=== PATIENT | female | born 1975 | race Caucasian/White ===

== ENCOUNTER 2019-04-23 | Day surgery (SDC) | payer OTHER ==
[~2019-04-23] MED LIST: ACIDOPHILU4 OR; AUGMENTIN500 MG OR; BACLOFEN10 MG PO; BASAGLAR K100 UNIT/M SC; CIPRO500 MG OR; DOXEPIN HCL10 MG PO; ERRIN PO; FLONASE0.05 %; GABAPENTIN100 MG PO; HUMALOG100 UNIT/M SC; LISINOPRIL10 MG PO; MONTELUKAST SOD10 MG PO; PREDNISONE1 MG PO; TRAZODONE100 MG PO
== END 2019-04-23 13:25 | disposition home or self-care (01) | DRG 607 ==
PROC: 0HB8XZZ Excision of Buttock Skin, External Approach (ICD-10-PCS; principal; 2019-04-23)
PROC: 0DJD8ZZ Inspection of Lower Intestinal Tract, Via Natural or Artificial Opening Endoscopic (ICD-10-PCS; 2019-04-23)
DX: L72.11 Pilar cyst (principal); E11.9 Type 2 diabetes mellitus without complications; Z79.4 Long term (current) use of insulin
CPT/HCPCS: C9290; J0131; J1100

== ENCOUNTER 2024-06-21 16:12 | Emergency (ER) | payer BC ==
[2024-06-21] VITALS (13 sets, daily range): BP systolic 137–165; BP diastolic 73–92
[~2024-06-21] VITALS: Ht 170.2 cm; Wt 87.0 kg
[2024-06-21] MEDS ORDERED: SODIUM CHLORIDE 0.9% 1,000 ML IV ONE (16:25)
[2024-06-21 16:50] LABS: BASO% 0.2 % (0-3); EOS% 0.1 % (0-8); HEMATOCRIT 43.8 % (37.0-47.0); HEMOGLOBIN 14.3 g/dl (12.0-16.0); IMMATURE GRANULOCYTES 0.8 % (0.0-5.0); LYMPH% 15.2 % (15-41); MEAN CELL VOLUME 93.6 fL CALC (80.0-100.0); MEAN CORPUSCULAR HGB 30.6 pG CALC (26.0-32.0); MEAN CORPUSCULAR HGB CONC 32.6 g/dL CAL (32.0-36.0); MONO% 5.1 % (2-13); NEUT# 8.94 thou/uL (2.00-7.15); NEUT% 78.6 % (42-76); RED BLOOD COUNT 4.68 mill/uL (4.20-5.60); RED CELL DISTRI WIDTH 11.9 % (11.5-15.5)
[2024-06-21 16:59] LABS: ALBUMIN 4.3 g/dL (3.2-5.0); ALKALINE PHOSPHATASE 133 u/l (38-126); ANION GAP 12 (6-22 (CALC)); BUN 12 mg/dL (7-17); BUN/CREATININE RATIO 15 (12-20 (CALC)); CARBON DIOXIDE 22 mmol/l (22-30); CHLORIDE 105 mmol/l (95-108); CREATININE 0.8 mg/dL (0.5-1.0); ESTIMATED GFR 92 ML/MIN (>=90 (CALC)); POTASSIUM 4.1 mmol/l (3.5-5.1); SGOT/AST 28 u/l (14-36); SODIUM 135 mmol/l (137-146); TOTAL PROTEIN 7.3 g/dL (6.3-8.2)
[2024-06-21 17:06] LABS: BILIRUBIN, TOTAL 0.6 mg/dL (0.02-1.3)
[2024-06-21] MEDS ORDERED: INSULIN LISPRO 100 UNITS/ML ML SC ONE (18:15)
[2024-06-21] MEDS ORDERED: ONDANSETRON HCl 4 MG/2 ML SDV IV ONE (19:00)
[2024-06-21] MEDS ORDERED: ACETAMINOPHEN 325 MG/TAB PO PRN (19:35)
[2024-06-21] MEDS ORDERED: Polyethylene Glycol 3350 17 GM/PKT PO PRN (19:35)
[2024-06-21] MEDS ORDERED: ONDANSETRON 4 MG/TAB ODT SL PRN (19:35)
[2024-06-21] MEDS ORDERED: MELATONIN 3 MG/TAB PO PRN (19:35)
[2024-06-21] MEDS ORDERED: ZOFRAN4 MG/TAB PO (19:55)
[2024-06-21] MEDS ORDERED: BACLOFEN 10 MG/TAB PO SCH (21:00)
[2024-06-21] MEDS ORDERED: traZODone HCL 50 MG/TAB PO SCH (21:00)
[2024-06-21] MEDS ORDERED: ENOXAPARIN SODIUM 40 MG/0.4 ML SYR SC SCH (21:00)
[2024-06-21] MEDS ORDERED: INSULIN LISPRO 100 UNITS/ML ML SC SCH (21:00)
[2024-06-22] MEDS ORDERED: INSULIN GLARGINE 100 UNITS/ML SC SCH (09:00)
[2024-06-22] MEDS ORDERED: MONTELUKAST SODIUM 10 MG/TAB PO SCH (09:00)
[2024-06-22] MEDS ORDERED: GABAPENTIN 100 MG/CAP PO SCH (09:00)
== END 2024-06-21 20:18 | disposition home or self-care (01) | DRG 312 ==
LOC: ED 16:12 → ED-I 19:06 → ED 20:18
PROVIDERS: Nurse Practitioner
DX: R55 Syncope and collapse (principal); E11.9 Type 2 diabetes mellitus without complications; Z79.4 Long term (current) use of insulin
CPT/HCPCS: J1815; J2405